=== PATIENT | female | born 1935 ===

== ENCOUNTER 2023-09-09 19:32 | Inpatient (IN) | payer MEDICARE, MEDICAID ==
[~2023-09-09] VITALS: Ht 154.9 cm; Wt 56.2 kg
[2023-09-09] MEDS ORDERED: SITA50TA PO (19:44)
[2023-09-09] MEDS ORDERED: DONE5TAB34 PO (19:44)
[2023-09-09] MEDS ORDERED: RISP0.5T65 PO (19:44)
[2023-09-09] MEDS ORDERED: LORA0.5T48 PO (19:44)
[2023-09-09] MEDS ORDERED: ATOR20TA PO (19:44)
[2023-09-09] MEDS ORDERED: AMLO-212 PO (19:44)
[2023-09-09] MEDS ORDERED: SERT50TA PO (19:44)
[2023-09-09] MEDS ORDERED: METF-440 PO (19:44)
[2023-09-09] MEDS ORDERED: METO50TA16 PO (19:44)
[2023-09-09] MEDS ORDERED: LOSA100T31 PO (19:44)
[2023-09-09] MEDS ORDERED: IV NS 1000 ML 1,000 ML IV ONE (19:45)
[2023-09-09 20:19] LABS: BASOPHILS % (AUTO) 0.2 % (0.0-2.0); HEMATOCRIT 30.6 % (31.2-41.9); HEMOGLOBIN 10.3 g/dL (10.9-14.3); LYMPHOCYTES # (AUTO) 0.8 K/uL (0.8-4.8); LYMPHOCYTES % (AUTO) 3.8 % (20.5-51.5); MEAN CORPUSCULAR HEMOGLOBIN 31.6 uug (24.7-32.8); MEAN CORPUSCULAR HGB CONC 34 g/dL (32.3-35.6); MEAN CORPUSCULAR VOLUME 93.5 fL (75.5-95.3); MONOCYTES # (AUTO) 1.4 K/uL (0.1-1.30); PLATELET COUNT (AUTO) 273 K/uL (179-408); RED BLOOD CELL COUNT(AUTO) 3.28 MIL/uL (3.63-4.92); RED CELL DISTRIBUTION WIDTH 12.8 % (12.3-17.7); WHITE BLOOD COUNT (AUTO) 20.2 K/uL (3.8-11.8)
[2023-09-09 20:28] LABS: CALCIUM 8.4 mg/dL (8.5-10.1); CARBON DIOXIDE 25 mmol/L (21-32); CHLORIDE 101 mmol/L (98-107); CREATININE 1.7 mg/dL (0.6-1.3); GLUCOSE 209 mg/dL (74-106); SODIUM SERUM 137 mmol/L (136-145); UREA NITROGEN, BLOOD 20 mg/dL (7-18)
[2023-09-09 20:32] LABS: DIFFERENTIAL COMMENT 1
[2023-09-09 20:41] LABS: ALANINE AMINOTRANSFERASE 31 U/L (14-59); ALBUMIN 2.8 g/dL (3.4-5.0); ALKALINE PHOSPHATASE 87 U/L (50-136); ASPARTATE AMINOTRANSFERASE 17 U/L (15-37); BILIRUBIN,TOTAL 1.1 mg/dL (0.2-1.0); NT-PRO BNP 1851 pg/mL (0-125); TOTAL PROTEIN, SERUM 6.5 g/dL (6.4-8.2)
[2023-09-09] MEDS ORDERED: CEFTRIAXONE /D5W 50ML IVPB **ER PYXIS IV ONE (21:40)
[2023-09-09] MEDS ORDERED: CEFTRIAXONE 1 G in IV DEXTROSE 5% 50 ML IV ONE (21:45)
[2023-09-09 22:11] LABS: *BILIRUBIN,URIN NEGATIVE (NEGATIVE); *BLOOD, URINE 1+ (NEGATIVE); *CLARITY,URINE CLOUDY (CLEAR); *COLOR,URINE YELLOW (YELLOW); *KETONES,URINE TRACE (NEGATIVE); LEUKOCYTE ESTERASE ,URINE 1+ (NEGATIVE); NITRITE, URINE NEGATIVE (NEGATIVE); PH,URINE 5.5 (5.0-8.0); UGLUCOSE NEGATIVE (NEGATIVE)
[2023-09-09 22:12] LABS: *PROTEIN,URINE 3+ (NEGATIVE)
[2023-09-09 22:19] LABS: BACTERIA,URINE MANY /HPF (NONE SEEN); RBC,URINE 20-50 /HPF (0-3); SQUAMOUS EPITHELIAL CELL,UR FEW /HPF (NONE SEEN); WBC,URINE 50-80 /HPF (0-3)
[2023-09-10] MEDS ORDERED: TEMAZEPAM 15 MG CAPSULE PO PRN (01:00)
[2023-09-10] MEDS ORDERED: MAGNESIUM HYDROXIDE 30 ML LIQUID UDC PO PRN (01:00)
[2023-09-10] MEDS ORDERED: ONDANSETRON 4 MG/2 ML VIAL IV PRN (01:00)
[2023-09-10] MEDS ORDERED: HYDROCODONE/APAP 5-325MG TABLET PO PRN (01:00)
[2023-09-10] MEDS ORDERED: REMEDY ESSENTIAL ZINC PASTE 113 GM TP PRN (01:00)
[2023-09-10] MEDS ORDERED: ACETAMINOPHEN 325 MG TABLET ONE (02:00)
[2023-09-10] MEDS: ACETAMINOPHEN 325 MG TABLET PO PRN ×2 (02:03→22:43)
[2023-09-10] MEDS: IV NS 1000 ML 1,000 ML IV PRN ×2 (03:23→21:05)
[2023-09-10 07:59] LABS: BASOPHILS % (AUTO) 0.1 % (0.0-2.0); HEMATOCRIT 26.4 % (31.2-41.9); LYMPHOCYTES % (AUTO) 4.9 % (20.5-51.5); MEAN CORPUSCULAR HEMOGLOBIN 31.7 uug (24.7-32.8); MEAN CORPUSCULAR HGB CONC 34 g/dL (32.3-35.6); MEAN CORPUSCULAR VOLUME 92.7 fL (75.5-95.3); MONOCYTES # (AUTO) 1.4 K/uL (0.1-1.30); NEUTROPHILS # (AUTO) 17.9 K/uL (1.8-8.9); PLATELET COUNT (AUTO) 220 K/uL (179-408); RED BLOOD CELL COUNT(AUTO) 2.85 MIL/uL (3.63-4.92); RED CELL DISTRIBUTION WIDTH 12.9 % (12.3-17.7); WHITE BLOOD COUNT (AUTO) 20.3 K/uL (3.8-11.8)
[2023-09-10 08:07] LABS: CARBON DIOXIDE 23 mmol/L (21-32); CHLORIDE 105 mmol/L (98-107); CREATININE 1.6 mg/dL (0.6-1.3); GLUCOSE 137 mg/dL (74-106); POTASSIUM 3.6 mmol/L (3.5-5.1); SODIUM SERUM 137 mmol/L (136-145); UREA NITROGEN, BLOOD 26 mg/dL (7-18)
[2023-09-10 08:10] LABS: DIFFERENTIAL COMMENT 1
[2023-09-10 08:13] LABS: ALANINE AMINOTRANSFERASE 18 U/L (14-59); ALBUMIN 2.4 g/dL (3.4-5.0); ALKALINE PHOSPHATASE 83 U/L (50-136); ASPARTATE AMINOTRANSFERASE 16 U/L (15-37); BILIRUBIN,TOTAL 0.8 mg/dL (0.2-1.0); TOTAL PROTEIN, SERUM 5.8 g/dL (6.4-8.2)
[2023-09-10 10:15] VITALS: BP 110/65; TEMP 99.2; O2SAT 96
[2023-09-10] MEDS ORDERED: DEXTROSE 50% 50 ML DISP.SYRIN IV PRN (12:00)
[2023-09-10] MEDS ORDERED: LORAZEPAM 0.5 MG TABLET PO PRN (12:30)
[2023-09-10 13:59] VITALS: BP 140/46; TEMP 103; O2SAT 93
[2023-09-10] MEDS ORDERED: METF-494 PO (14:25)
[2023-09-10] MEDS: risperiDONE 0.5 MG TABLET PO SCH (17:45)
[2023-09-10] MEDS: BLOOD SUGAR DIAGNOSTIC 1 EACH STRIP VI SCH ×2 (17:49→21:06)
[2023-09-10] MEDS: INSULIN REGULAR, HUMAN 300 UNIT/3 ML VIAL SQ PRN ×2 (17:53→21:02)
[2023-09-10 20:00] VITALS: BP 114/51; TEMP 99.4; O2SAT 99
[2023-09-10] MEDS: ATORVASTATIN 20 MG TABLET PO SCH (20:57)
[2023-09-10] MEDS: DONEPEZIL 5 MG TABLET PO SCH (20:57)
[2023-09-10] MEDS ORDERED: CEFTRIAXONE 1 G in IV DEXTROSE 5% 50 ML IV SCH (22:00)
[2023-09-10] MEDS ORDERED: MEROPENEM 0.5 G in IV NORMAL SALINE 50 ML IV SCH (22:15)
[2023-09-10 22:40] VITALS: TEMP 102.5; O2SAT 99
[2023-09-10] MEDS ORDERED: MEROPENEM 500 MG in IV NORMAL SALINE 50 ML IV ONE (23:00)
[2023-09-10] MEDS ORDERED: MEROPENEM 500MG/NS 50ML PB ***ER PYXIS ONLY IV ONE (23:21)
[2023-09-11] VITALS: BP 107/41; TEMP 100; O2SAT 96
[2023-09-11 04:00] VITALS: BP 109/55; TEMP 98.9; O2SAT 99
[2023-09-11] MEDS: BLOOD SUGAR DIAGNOSTIC 1 EACH STRIP VI SCH ×5 (06:36→21:01)
[2023-09-11 07:42] LABS: BASOPHILS % (AUTO) 0.2 % (0.0-2.0); EOSINOPHILS % (AUTO) 0.3 % (0.0-7.0); HEMATOCRIT 28.1 % (31.2-41.9); HEMOGLOBIN 9.6 g/dL (10.9-14.3); LYMPHOCYTES # (AUTO) 0.6 K/uL (0.8-4.8); LYMPHOCYTES % (AUTO) 5.1 % (20.5-51.5); MEAN CORPUSCULAR HEMOGLOBIN 32.2 uug (24.7-32.8); MEAN CORPUSCULAR HGB CONC 34 g/dL (32.3-35.6); MEAN CORPUSCULAR VOLUME 94.5 fL (75.5-95.3); MONOCYTES # (AUTO) 0.9 K/uL (0.1-1.30); MONOCYTES % (AUTO) 7.2 % (0.0-11.0); NEUTROPHILS % (AUTO) 87.2 % (38.5-71.5); PLATELET COUNT (AUTO) 262 K/uL (179-408); RED BLOOD CELL COUNT(AUTO) 2.98 MIL/uL (3.63-4.92); RED CELL DISTRIBUTION WIDTH 13.2 % (12.3-17.7); WHITE BLOOD COUNT (AUTO) 12.6 K/uL (3.8-11.8)
[2023-09-11 07:48] LABS: DIFFERENTIAL COMMENT 1
[2023-09-11 07:56] LABS: IRON, SERUM 9 ug/dL (50-175)
[2023-09-11 08:00] VITALS: BP 148/68; TEMP 98.2; O2SAT 96
[2023-09-11 08:04] LABS: THYROID STIMULATING HORMONE 0.668 mIU/mL (0.358-3.740)
[2023-09-11 08:06] LABS: ALANINE AMINOTRANSFERASE 17 U/L (14-59); ALBUMIN 2.4 g/dL (3.4-5.0); ALKALINE PHOSPHATASE 95 U/L (50-136); ASPARTATE AMINOTRANSFERASE 17 U/L (15-37); BILIRUBIN,TOTAL 0.6 mg/dL (0.2-1.0); CALCIUM 8.1 mg/dL (8.5-10.1); CARBON DIOXIDE 23 mmol/L (21-32); CHLORIDE 107 mmol/L (98-107); CHOLESTEROL 106 mg/dL (<200); CREATININE 1.3 mg/dL (0.6-1.3); GLUCOSE 124 mg/dL (74-106); HDL CHOLESTEROL 37 mg/dL (40-60); MAGNESIUM 1.8 mg/dL (1.8-2.4); PHOSPHOROUS 2.1 mg/dL (2.5-4.9); POTASSIUM 3.5 mmol/L (3.5-5.1); SODIUM SERUM 141 mmol/L (136-145); TOTAL PROTEIN, SERUM 6.2 g/dL (6.4-8.2); TRIGLYCERIDES 78 MG/DL (30-150); UREA NITROGEN, BLOOD 22 mg/dL (7-18)
[2023-09-11] MEDS ORDERED: Medication Not On Formulary EA (Sitagliptin Phosphate (Januvia) 25 MG) PO SCH (09:00)
[2023-09-11] MEDS: SERTRALINE HCL 50 MG TABLET PO SCH (09:03)
[2023-09-11] MEDS: LINAGLIPTIN 5 MG TABLET PO SCH (09:04)
[2023-09-11] MEDS: risperiDONE 0.5 MG TABLET PO SCH ×2 (09:04→20:50)
[2023-09-11] MEDS: IV NS 1000 ML 1,000 ML IV PRN (11:09)
[2023-09-11] MEDS: ACETAMINOPHEN 325 MG TABLET PO PRN (11:16)
[2023-09-11 11:42] VITALS: BP 161/76; TEMP 100.3; O2SAT 96
[2023-09-11] MEDS: INSULIN REGULAR, HUMAN 300 UNIT/3 ML VIAL SQ PRN ×3 (11:49→21:02)
[2023-09-11] MEDS: MEROPENEM 500 MG in IV NORMAL SALINE 50 ML IV SCH (11:52)
[2023-09-11] MEDS ORDERED: NEUTRA PHOS PACKET PO ONE (16:00)
[2023-09-11 16:13] VITALS: BP 107/44; TEMP 99; O2SAT 96
[2023-09-11] MEDS: PROTEIN SUPPLEMENT (PROSTAT) 30 ML LIQUID PO SCH (16:39)
[2023-09-11 20:10] VITALS: BP 150/60; TEMP 99.9; O2SAT 98
[2023-09-11] MEDS: DONEPEZIL 5 MG TABLET PO SCH (20:49)
[2023-09-11] MEDS: ATORVASTATIN 20 MG TABLET PO SCH (20:49)
[2023-09-12 00:16] VITALS: BP 136/54; TEMP 99.7; O2SAT 94
[2023-09-12] MEDS: MEROPENEM 500 MG in IV NORMAL SALINE 50 ML IV SCH ×2 (00:21→12:28)
[2023-09-12] MEDS: IV NS 1000 ML 1,000 ML IV PRN (01:00)
[2023-09-12 04:29] VITALS: BP 169/74; TEMP 99.3; O2SAT 97
[2023-09-12] MEDS: BLOOD SUGAR DIAGNOSTIC 1 EACH STRIP VI SCH ×4 (06:28→20:27)
[2023-09-12 07:47] LABS: BASOPHILS % (AUTO) 0.5 % (0.0-2.0); EOSINOPHILS # (AUTO) 0.1 K/uL (0.0-0.7); EOSINOPHILS % (AUTO) 0.8 % (0.0-7.0); HEMATOCRIT 29.2 % (31.2-41.9); LYMPHOCYTES # (AUTO) 0.8 K/uL (0.8-4.8); LYMPHOCYTES % (AUTO) 10.1 % (20.5-51.5); MEAN CORPUSCULAR HEMOGLOBIN 32.2 uug (24.7-32.8); MEAN CORPUSCULAR HGB CONC 34 g/dL (32.3-35.6); MEAN CORPUSCULAR VOLUME 93.8 fL (75.5-95.3); MONOCYTES # (AUTO) 0.6 K/uL (0.1-1.30); NEUTROPHILS % (AUTO) 80.6 % (38.5-71.5); PLATELET COUNT (AUTO) 262 K/uL (179-408); RED BLOOD CELL COUNT(AUTO) 3.11 MIL/uL (3.63-4.92); RED CELL DISTRIBUTION WIDTH 13.4 % (12.3-17.7); WHITE BLOOD COUNT (AUTO) 7.5 K/uL (3.8-11.8)
[2023-09-12 08:00] VITALS: BP 169/89; TEMP 99.1; O2SAT 97
[2023-09-12 08:03] LABS: DIFFERENTIAL COMMENT 1
[2023-09-12 08:32] LABS: CALCIUM 8.1 mg/dL (8.5-10.1); CARBON DIOXIDE 23 mmol/L (21-32); CHLORIDE 109 mmol/L (98-107); CREATININE 1.2 mg/dL (0.6-1.3); GLUCOSE 133 mg/dL (74-106); MAGNESIUM 1.7 mg/dL (1.8-2.4); PHOSPHOROUS 2.3 mg/dL (2.5-4.9); POTASSIUM 3.4 mmol/L (3.5-5.1); SODIUM SERUM 143 mmol/L (136-145); UREA NITROGEN, BLOOD 18 mg/dL (7-18)
[2023-09-12] MEDS: SERTRALINE HCL 50 MG TABLET PO SCH (09:13)
[2023-09-12] MEDS: LINAGLIPTIN 5 MG TABLET PO SCH (09:13)
[2023-09-12] MEDS: PROTEIN SUPPLEMENT (PROSTAT) 30 ML LIQUID PO SCH ×2 (09:13→17:22)
[2023-09-12] MEDS: risperiDONE 0.5 MG TABLET PO SCH ×2 (09:13→20:22)
[2023-09-12] MEDS: NEPRO (VANILLA) 237 ML CAN PO SCH (09:14)
[2023-09-12] MEDS: AMLODIPINE 5 MG TABLET PO SCH (09:16)
[2023-09-12] MEDS: INSULIN REGULAR, HUMAN 300 UNIT/3 ML VIAL SQ PRN ×3 (12:32→20:31)
[2023-09-12] MEDS ORDERED: POTASSIUM CHLORIDE 20 MEQ TAB.PRT.SR PO ONE (15:00)
[2023-09-12] MEDS ORDERED: MAGNESIUM OXIDE 400 MG TABLET PO ONE (15:15)
[2023-09-12] MEDS ORDERED: NEUTRA PHOS PACKET PO ONE (16:00)
[2023-09-12] MEDS: ATORVASTATIN 20 MG TABLET PO SCH (20:22)
[2023-09-12] MEDS: DONEPEZIL 5 MG TABLET PO SCH (20:22)
[2023-09-12 20:25] VITALS: BP 154/71; TEMP 98.8; O2SAT 97
[2023-09-12] MEDS ORDERED: CEFTRIAXONE 1 G in IV DEXTROSE 5% 50 ML IV SCH (22:00)
[2023-09-12 22:54] VITALS: BP 150/57; TEMP 98.4; O2SAT 94
[2023-09-12] MEDS ORDERED: CEFTRIAXONE /D5W 50ML IVPB **ER PYXIS IV ONE (23:45)
[2023-09-13 04:00] VITALS: BP 155/75; TEMP 98.9; O2SAT 94
[2023-09-13] MEDS: BLOOD SUGAR DIAGNOSTIC 1 EACH STRIP VI SCH ×4 (06:41→21:06)
[2023-09-13 07:36] LABS: ALANINE AMINOTRANSFERASE 26 U/L (14-59); ALBUMIN 2.2 g/dL (3.4-5.0); ALKALINE PHOSPHATASE 143 U/L (50-136); ASPARTATE AMINOTRANSFERASE 19 U/L (15-37); BILIRUBIN,TOTAL 0.4 mg/dL (0.2-1.0); CARBON DIOXIDE 24 mmol/L (21-32); CHLORIDE 107 mmol/L (98-107); CREATININE 0.8 mg/dL (0.6-1.3); GLUCOSE 123 mg/dL (74-106); MAGNESIUM 1.7 mg/dL (1.8-2.4); PHOSPHOROUS 2.6 mg/dL (2.5-4.9); POTASSIUM 3.7 mmol/L (3.5-5.1); SODIUM SERUM 138 mmol/L (136-145); TOTAL PROTEIN, SERUM 5.8 g/dL (6.4-8.2); UREA NITROGEN, BLOOD 11 mg/dL (7-18)
[2023-09-13 08:00] VITALS: BP 148/67; TEMP 98.2; O2SAT 97
[2023-09-13 08:01] LABS: BASOPHILS % (AUTO) 0.3 % (0.0-2.0); DIFFERENTIAL COMMENT 1; EOSINOPHILS # (AUTO) 0.1 K/uL (0.0-0.7); EOSINOPHILS % (AUTO) 1.2 % (0.0-7.0); HEMATOCRIT 25.1 % (31.2-41.9); LYMPHOCYTES # (AUTO) 0.9 K/uL (0.8-4.8); LYMPHOCYTES % (AUTO) 14.1 % (20.5-51.5); MEAN CORPUSCULAR HEMOGLOBIN 37.2 uug (24.7-32.8); MEAN CORPUSCULAR HGB CONC 36 g/dL (32.3-35.6); MEAN CORPUSCULAR VOLUME 103.8 fL (75.5-95.3); MONOCYTES # (AUTO) 0.7 K/uL (0.1-1.30); NEUTROPHILS # (AUTO) 4.9 K/uL (1.8-8.9); NEUTROPHILS % (AUTO) 74.4 % (38.5-71.5); PLATELET COUNT (AUTO) 240 K/uL (179-408); RED BLOOD CELL COUNT(AUTO) 2.42 MIL/uL (3.63-4.92); RED CELL DISTRIBUTION WIDTH 13.5 % (12.3-17.7); WHITE BLOOD COUNT (AUTO) 6.6 K/uL (3.8-11.8)
[2023-09-13] MEDS ORDERED: PROTEIN SUPPLEMENT (PROSTAT) 30 ML LIQUID PO SCH (08:30)
[2023-09-13] MEDS ORDERED: MAGNESIUM SULFATE/D5W 100 ML IV SCH (08:30)
[2023-09-13] MEDS ORDERED: POTASSIUM CHLORIDE 20 MEQ TAB.PRT.SR PO ONE (08:30)
[2023-09-13] MEDS: ACIDOPHILUS/BULGARICUS CHEW TAB PO SCH ×2 (08:50→20:47)
[2023-09-13] MEDS: SERTRALINE HCL 50 MG TABLET PO SCH (08:50)
[2023-09-13] MEDS: LINAGLIPTIN 5 MG TABLET PO SCH (08:50)
[2023-09-13] MEDS: risperiDONE 0.5 MG TABLET PO SCH ×2 (08:51→20:48)
[2023-09-13] MEDS: LOSARTAN POTASSIUM 50 MG TABLET PO SCH (08:53)
[2023-09-13] MEDS: PROTEIN SUPPLEMENT (PROSTAT) 30 ML LIQUID PO SCH ×2 (08:54→16:14)
[2023-09-13] MEDS: AMLODIPINE 5 MG TABLET PO SCH (08:54)
[2023-09-13] MEDS: NEPRO (VANILLA) 237 ML CAN PO SCH (09:26)
[2023-09-13] MEDS: INSULIN REGULAR, HUMAN 300 UNIT/3 ML VIAL SQ PRN ×2 (11:57→21:11)
[2023-09-13 15:25] VITALS: BP 114/63; TEMP 98.1; O2SAT 98
[2023-09-13 19:49] VITALS: BP 123/58; TEMP 98.5; O2SAT 98
[2023-09-13] MEDS: DONEPEZIL 5 MG TABLET PO SCH (20:47)
[2023-09-13] MEDS: ATORVASTATIN 20 MG TABLET PO SCH (20:48)
[2023-09-13] MEDS ORDERED: SULFAMETH/TRIMETH 800/160 MG TABLET PO SCH (21:00)
[2023-09-13] MEDS ORDERED: levoFLOXacin 500 MG TABLET PO ONE (21:00)
[2023-09-14 04:00] VITALS: BP 144/70; TEMP 98.1; O2SAT 95
[2023-09-14] MEDS: BLOOD SUGAR DIAGNOSTIC 1 EACH STRIP VI SCH (06:51)
[2023-09-14 08:07] VITALS: BP 162/73; TEMP 98.6; O2SAT 96
[2023-09-14] MEDS: LINAGLIPTIN 5 MG TABLET PO SCH (08:29)
[2023-09-14] MEDS: ACIDOPHILUS/BULGARICUS CHEW TAB PO SCH (08:29)
[2023-09-14] MEDS: SERTRALINE HCL 50 MG TABLET PO SCH (08:29)
[2023-09-14] MEDS: risperiDONE 0.5 MG TABLET PO SCH (08:29)
[2023-09-14] MEDS: AMLODIPINE 5 MG TABLET PO SCH (08:30)
[2023-09-14] MEDS: PROTEIN SUPPLEMENT (PROSTAT) 30 ML LIQUID PO SCH (08:30)
[2023-09-14] MEDS: NEPRO (VANILLA) 237 ML CAN PO SCH (08:31)
[2023-09-14] MEDS: LOSARTAN POTASSIUM 50 MG TABLET PO SCH (08:32)
[2023-09-14 09:13] VITALS: BP 143/65
[2023-09-14] MEDS ORDERED: ACID1TAB4 PO (12:37)
[2023-09-14] MEDS ORDERED: LEVO250T59 PO (12:37)
[2023-09-14] MEDS ORDERED: levoFLOXacin 250 MG TABLET PO SCH (21:00)
== END 2023-09-14 14:30 | DRG 871 ==
LOC: ER 19:35 → TRANSITION 09-10 01:14 → MEDSURG3 09-10 09:41 → TELE3 09-10 10:24 → MEDSURG3 09-11 10:33 → MED 09-12 21:48
PROVIDERS: ADMIT Nurse Practitioner Acute Care; ATTEND Internal Medicine
DX: A41.51 Sepsis due to Escherichia coli [E. coli] (principal); G92.8 Other toxic encephalopathy; I21.A1 Myocardial infarction type 2; N17.0 Acute kidney failure with tubular necrosis; N39.0 Urinary tract infection, site not specified; R65.20 Severe sepsis without septic shock; D64.9 Anemia, unspecified; E78.5 Hyperlipidemia, unspecified; F09 Unspecified mental disorder due to known physiological condition; E11.9 Type 2 diabetes mellitus without complications; I51.89 Other ill-defined heart diseases; F03.90 Unspecified dementia, unspecified severity, without behavioral disturbance, psychotic disturbance, mood disturbance, and anxiety; I27.20 Pulmonary hypertension, unspecified; I10 Essential (primary) hypertension; I35.8 Other nonrheumatic aortic valve disorders; Z79.84 Long term (current) use of oral hypoglycemic drugs
CPT/HCPCS: 36415; 70450; 71045; 83550; 83605; 83735; 84100; 84443; 84484; 85025; 85610; 87040; 87077; 93307; A4663; C1758; G0378; J0696; J1815; J2185; J3475; J7040